=== PATIENT | male | born 1970 | race African-American/Black ===

== ENCOUNTER 2023-02-15 01:25 | Emergency (ER) | payer MEDICAID, OTHER ==
[~2023-02-15] VITALS: Ht 180.3 cm; Wt 79.5 kg
[2023-02-15 01:34] VITALS: BP 139/85; PULSE 66; RESP 18; TEMP 97.9; O2SAT 96
== END 2023-02-15 04:29 | disposition left against medical advice (07) ==
LOC: ER 01:25
DX: K08.89 Other specified disorders of teeth and supporting structures (principal); Z53.21 Procedure and treatment not carried out due to patient leaving prior to being seen by health care provider
CPT/HCPCS: 99281